=== PATIENT | female | born 1935 | race Caucasian/White ===

== ENCOUNTER → 2017-04-12 | Outpatient (CLI) | payer MEDICARE, MEDICAID ==
[~2017-04-12] MED LIST: 3N1 COMMODE MC; ALPR1TAB2 PO; ASPI-781 PO; ATEN-138 PO; ATEN-51 PO; BEN25 PO; BISA10SU75 PR; CIPR500T4 PO; DOCU-144 PO; FLUO20CA38 PO; LOSA25TA5 PO; LOSA50TA2 PO; NA P133E3 PR; OXYC-481 PO; RANI150T9 PO; SIMV20TA2 PO; TRAM50TA2 PO; UDMOM PO; WALK1EAC23 MC
--- NOTE | 2017-04-12 17:39 | RADRPT ---
PROCEDURE: US upper extremity Venous. CLINICAL INDICATION: Right arm edema , pain TECHNIQUE: Multiple sonographic images of the right upper extremity venous system was obtained uti lizing grayscale, color-flow, compressive sonography and doppler imaging with augmentation. The yazmin ges were reviewed on a PACS workstation. COMPARISON: None. FINDINGS: There is normal compressibility and flow within the right internal jugular vein, subclavian vein, ax illary vein, brachial, basilic, cephalic, radial and ulnar veins. RPTAT: AA IMPRESSION: No sonographic evidence for venous thrombosis. .Mazin Virk MD, MD Date Time Electronically viewed and signed by .Mazin Virk MD, on 04/12/2017 17:39 .S/
== END | disposition home or self-care (01) ==
LOC: VAS 16:50
PROVIDERS: ATTEND Internal Medicine
DX: M79.631 Pain in right forearm (principal); R22.31 Localized swelling, mass and lump, right upper limb
CPT/HCPCS: 93971